=== PATIENT | female | born 1945 | race Hispanic/Latino ===

== ENCOUNTER 2018-04-04 19:42 | Emergency (ER) | payer MEDICARE ==
[2018-04-04] MEDS ORDERED: predniSONE 20 MG TAB ONE (20:06)
[2018-04-04] MEDS ORDERED: Montelukast Sodium 10 mg Tablet ONE (20:08)
== END 2018-04-04 20:29 | disposition home or self-care (01) ==
LOC: SCSER 19:42
DX: J45.901 Unspecified asthma with (acute) exacerbation (principal); E78.5 Hyperlipidemia, unspecified; Z79.899 Other long term (current) drug therapy
CPT/HCPCS: 94640; J7506; J7620